=== PATIENT | male | born 1975 | race Caucasian/White ===

== ENCOUNTER → 2017-01-10 | Outpatient (CLI) | payer BC ==
[~2017-01-10] MED LIST: ADAL20KI INJ; ATOR-24 PO; PRLSR20 PO
[2017-01-10 13:39] LABS: BASO % 0.9 %; BASO ABS # 0.07 K/uL (0-0.2); COMPLETE YES; EOS % 5.9 %; HEMATOCRIT 44.6 % (42-52); IG% 0.3 %; LYMPH ABS # 2.59 K/uL (1.2-3.4); MEAN CELL VOLUME 85.8 fL (80-100); MEAN CORPUSCULAR HEMOGLOBIN 30.2 pg (25-34); MEAN CORPUSCULAR HGB CONC 35.2 g/dl (32-36); MEAN PLATELET VOLUME 9.5 fL (7.4-10.4); MONO % 9.1 %; NEUT % 49.8 %; PLATELET COUNT 253 K/uL (130-400); WHITE BLOOD COUNT 7.61 K/uL (4.8-10.8)
[2017-01-10 13:50] LABS: AMYLASE 43 U/L (25-115)
== END | disposition home or self-care (01) ==
LOC: C.LAB1850 12:19
PROVIDERS: ATTEND Physician Assistant
DX: K85.90 Acute pancreatitis without necrosis or infection, unspecified (principal)

== ENCOUNTER → 2017-01-11 | Outpatient (CLI) | payer BC ==
[~2017-01-11] MED LIST changes: +OPTIRAY 320 IV PRN
--- NOTE | 2017-01-11 14:19 | DIAGNOSTIC IMAGING REPORT ---
CT OF THE ABDOMEN AND PELVIS WITH CONTRAST CLINICAL HISTORY: Abdominal pain. Evaluate for acute pancreatitis. COMPARISON STUDY: CT of the abdomen and pelvis April 21, 2015, biliary ultrasound April 22, 2015 and MRCP July 14, 2015. TECHNIQUE: Following IV administration of 118 mL of [id number]-[id number], axial images of the abdomen and pelvis were obtained from the lung bases to the proximal femurs. Images were reviewed in the axial, sagittal, and coronal planes. IV contrast was administered without complication. Oral contrast was administered. CT DOSE: 1133.66 mGy.cm FINDINGS: The liver, spleen, adrenal glands, kidneys and pancreas are normal. There is no peripancreatic infiltration or fluid. There are no peripancreatic fluid collections. There is no biliary or pancreatic ductal dilatation. The caliber and wall thickness of small and large bowel are normal. The appendix is normal. No lymphadenopathy or ascites is present. No suspicious skeletal lesions are identified. There is no hydronephrosis. Both nephrograms are symmetric. IMPRESSION: No acute process within the abdomen or pelvis. Normal CT appearance of the pancreas. Electronically signed by: Fabian Gómez M.D. 01/11/2017 2:18 PM Dictated Date/Time: 01/11/2017 2:11 PM
== END | disposition home or self-care (01) ==
LOC: C.CTS 11:35
PROVIDERS: ATTEND Physician Assistant
DX: K85.90 Acute pancreatitis without necrosis or infection, unspecified (principal)

== ENCOUNTER → 2017-02-03 | Outpatient (CLI) | payer BC ==
[~2017-02-03] MED LIST changes: -OPTIRAY 320 IV PRN
[2017-02-03 09:36] LABS: BASO % 0.8 %; BASO ABS # 0.06 K/uL (0-0.2); COMPLETE YES; EOS % 6.7 %; HEMATOCRIT 43.9 % (42-52); IG% 0.3 %; LYMPH % 26.8 %; LYMPH ABS # 2.05 K/uL (1.2-3.4); MEAN CELL VOLUME 86.1 fL (80-100); MEAN CORPUSCULAR HEMOGLOBIN 30.8 pg (25-34); MEAN CORPUSCULAR HGB CONC 35.8 g/dl (32-36); MEAN PLATELET VOLUME 9.8 fL (7.4-10.4); MONO % 7.6 %; NEUT % 57.8 %; PLATELET COUNT 227 K/uL (130-400); WHITE BLOOD COUNT 7.66 K/uL (4.8-10.8)
[2017-02-03 10:05] LABS: C-REACTIVE PROTEIN 0.53 mg/dl (0-0.29); CHOLESTEROL/HDL RATIO 3.5
== END | disposition home or self-care (01) ==
LOC: C.LAB1850 06:57
PROVIDERS: ATTEND Internal Medicine
DX: E78.00 Pure hypercholesterolemia, unspecified (principal)

== ENCOUNTER → 2017-08-04 | Outpatient (CLI) | payer BC ==
[2017-08-04 09:46] LABS: BASO % 1.1 %; BASO ABS # 0.08 K/uL (0-0.2); EOS % 4.8 %; EOS ABS # 0.35 K/uL (0-0.5); HEMATOCRIT 45.1 % (42-52); HEMOGLOBIN 15.9 g/dL (14.0-18.0); IG# 0.01 K/uL (0.00-0.02); LYMPH % 31.5 %; LYMPH ABS # 2.29 K/uL (1.2-3.4); MEAN CELL VOLUME 86.4 fL (80-100); MEAN CORPUSCULAR HEMOGLOBIN 30.5 pg (25-34); MEAN CORPUSCULAR HGB CONC 35.3 g/dl (32-36); MEAN PLATELET VOLUME 9.5 fL (7.4-10.4); MONO % 8.5 %; MONO ABS # 0.62 K/uL (0.11-0.59); NEUT ABS # 3.92 K/uL (1.4-6.5); PLATELET COUNT 227 K/uL (130-400); RED CELL DISTRIBUTION WIDTH CV 13.5 % (11.5-14.5); RED CELL DISTRIBUTION WIDTH SD 42.7 fL (36.4-46.3); WHITE BLOOD COUNT 7.27 K/uL (4.8-10.8)
[2017-08-04 10:15] LABS: HEMOGLOBIN A1C 5.3 % (4.5-5.6)
[2017-08-04 11:23] LABS: ALT/SGPT 42 U/L (12-78); AST/SGOT 15 U/L (15-37); BLOOD UREA NITROGEN 16 mg/dl (7-18); CALCIUM 8.7 mg/dl (8.5-10.1); CARBON DIOXIDE 24 mmol/L (21-32); CREATININE 0.99 mg/dl (0.60-1.40); GLUCOSE 92 mg/dl (70-99); POTASSIUM 4.1 mmol/L (3.5-5.1); SODIUM 138 mmol/L (136-145)
[2017-08-04 11:34] LABS: CHOLESTEROL 214 mg/dl (0-200); LDL CHOLESTEROL CALCULATED 144 mg/dl
== END | disposition home or self-care (01) ==
LOC: C.LAB1850 07:01
PROVIDERS: ATTEND Internal Medicine
DX: K58.9 Irritable bowel syndrome, unspecified (principal)

== ENCOUNTER → 2017-12-05 | Outpatient (CLI) | payer BC ==
[2017-12-05 09:33] LABS: BASO ABS # 0.07 K/uL (0-0.2); EOS % 5.9 %; EOS ABS # 0.41 K/uL (0-0.5); HEMOGLOBIN 15.5 g/dL (14.0-18.0); IG# 0.01 K/uL (0.00-0.02); LYMPH % 26.8 %; LYMPH ABS # 1.85 K/uL (1.2-3.4); MEAN CELL VOLUME 87.4 fL (80-100); MEAN CORPUSCULAR HEMOGLOBIN 30.1 pg (25-34); MEAN CORPUSCULAR HGB CONC 34.4 g/dl (32-36); MEAN PLATELET VOLUME 9.7 fL (7.4-10.4); MONO % 7.2 %; NEUT ABS # 4.07 K/uL (1.4-6.5); PLATELET COUNT 210 K/uL (130-400); RED CELL DISTRIBUTION WIDTH CV 14.4 % (11.5-14.5); RED CELL DISTRIBUTION WIDTH SD 45.8 fL (36.4-46.3); WHITE BLOOD COUNT 6.91 K/uL (4.8-10.8)
== END | disposition home or self-care (01) ==
LOC: C.LAB1850 07:12
PROVIDERS: ATTEND Internal Medicine
DX: R14.0 Abdominal distension (gaseous) (principal); K58.9 Irritable bowel syndrome, unspecified; E78.00 Pure hypercholesterolemia, unspecified